=== PATIENT | female | born 1930 | race Caucasian/White ===

== ENCOUNTER 2019-01-11 08:02 | Emergency (ER) | payer OTHER ==
[~2019-01-11] VITALS: Wt 61.1 kg
[~2019-01-11 08:02] MED LIST: AMLO-147 PO; BEN25 PO; BENA1TAB12 PO; CEPH-443 PO; GLYB5TAB3 PO; MAG355OR15 PO; METF-480 PO; MUPI22OI2 TOP; OXYC-281 PO
[2019-01-11 08:10] VITALS: BP 130/84; PULSE 105; RESP 20
[2019-01-11] MEDS ORDERED: MUPIROCIN 2% 15 GM CR TOP ONE (09:30)
[2019-01-11] MEDS ORDERED: MUPIROCIN 2% 22 GM OINT TOP SCH (09:30)
== END 2019-01-11 09:40 | disposition home or self-care (01) ==
LOC: E/R 08:02
DX: S81.802A Unspecified open wound, left lower leg, initial encounter (principal); I10 Essential (primary) hypertension; E11.9 Type 2 diabetes mellitus without complications; X58.XXXA Exposure to other specified factors, initial encounter; Y92.9 Unspecified place or not applicable; Z79.84 Long term (current) use of oral hypoglycemic drugs
CPT/HCPCS: Z7502; Z7610; 99283